=== PATIENT | female | born 1970 | race Caucasian/White ===

== ENCOUNTER 2017-10-13 21:03 | Emergency (ER) | payer MEDICARE, OTHER ==
[2017-10-13] MEDS: KETOROLAC 30 MG INJ IM (22:29)
== END 2017-10-14 00:20 | disposition home or self-care (01) ==
LOC: FTE 10-14 00:20
DX: M25.552 Pain in left hip (principal); Z91.040 Latex allergy status
CPT/HCPCS: 73510; 96372; 99284-25